=== PATIENT | female | born 1955 | race Hispanic/Latino ===

== ENCOUNTER 2016-11-09 08:42 | Outpatient (CLI) | payer MEDICARE, OTHER | END 2016-11-09 08:43 | disposition home or self-care (01) | LOC: VAS 08:42 | PROVIDERS: ATTEND Internal Medicine | DX: M79.604 Pain in right leg (principal); M79.605 Pain in left leg; M79.89 Other specified soft tissue disorders | CPT/HCPCS: 93970 ==

== ENCOUNTER 2019-07-18 08:26 | Day surgery (SDC) | payer MEDICARE, OTHER ==
[2019-07-18] MEDS ORDERED: BENZOCAINE 20% TOP SPRAY 0.5 ML UNIT DOSE MM ONE (08:38)
[2019-07-18] MEDS ORDERED: LIDOCAINE VISCOUS 2% 15 ML ORAL LIQD ONE ×2 (08:39→08:40)
[2019-07-18] MEDS ORDERED: LIDOCAINE (1%) 10 MG/1 ML VIAL 20 ML MDV ONE (08:41)
[2019-07-18] MEDS ORDERED: EPINEPHrine 1:10,000 1 MG/10 ML SYRINGE ONE (08:42)
[2019-07-18] MEDS ORDERED: EPINEPHrine/PF (1:1,000) 1 MG/1 ML INJ ONE (08:43)
[2019-07-18] MEDS ORDERED: SODIUM CHLORIDE 0.9% 1000 ML 1,000 ML ONE (08:53)
--- NOTE | 2019-07-18 08:59 | Anesthesia Consultation ---
Anesthesia Consult and Med Hx Date of service: 07/18/19 - Airway Anesthetic Teeth Evaluation: Crowns, Partials ROM Head & Neck: Adequate Mental/Hyoid Distance: Adequate Mallampati Class: Class II Intubation Access Assessment: Probably Good - Pre-Operative Health Status ASA Pre-Surgery Classification: ASA4 Proposed Anesthetic Plan: MAC - Pulmonary Hx Smoking: Yes (1-2 PPD ) Hx Asthma: Yes Hx Respiratory Symptoms: Yes (persistent cough) SOB: Yes COPD: Yes (ON 02 PRN AT BEDTIME) Home Oxygen Therapy: Yes Hx Pneumonia: No Hx Sleep Apnea: Yes - Cardiovascular System Hx Hypertension: No Hx Coronary Artery Disease: Yes (CABG 01/19/17) Hx Heart Attack/AMI: No Hx Angina: Yes Hx Percutaneous Transluminal Coronary Angioplasty (PTCA): Yes Hx Cardia Arrhythmia: No Hx Pacemaker: No Hx Internal Defibrillator: No Hx Valvular Heart Disease: No Hx Heart Murmur: No Hx Peripheral Vascular Disease: Yes (DVT 2009 takes plavix - stopped 1 week ago) - Central Nervous System Hx Neuromuscular Disorder: No Hx Seizures: No CVA: No Hx Back Pain: Yes Hx Psychiatric Problems: Yes (anexity/depression) - Gastrointestinal Hx Ulcer: No Hx Gastroesophageal Reflux Disease: Yes - Endocrine Hx Renal Disease: Yes (kidney stones) Hx End Stage Renal Disease: No Hx Cirrhosis: No Hx Liver Disease: No Hx Insulin Dependent Diabetes: No (pre-diabetes) Hx Non-Insulin Dependent Diabetes: No Hx Thyroid Disease: No Hx Hypothyroidism: No Hx Hyperthyroidism: No - Hematic Hx Anemia: No Hx Sickle Cell Disease: No - Other Systems Hx Alcohol Use: No Hx Substance Use: No Hx Cancer: Yes (SKIN CA ON BACK;) Hx Obesity: No
--- NOTE | 2019-07-18 09:02 | Anesthesia Day of Surgery ---
Anesthesia Day of Surgery - Day of Surgery Patient Examined: Yes Patient H&P Reviewed: Yes Patient is NPO: Yes Beta Blockers: Yes Cardiac Clearance: Yes
[2019-07-18] MEDS ORDERED: PROPOFOL 200 MG/20 ML VIAL IV ONE ×2 (09:50→09:51)
[2019-07-18] MEDS ORDERED: ONDANSETRON 4 MG/2 ML INJ ONE (10:30)
--- NOTE | 2019-07-18 10:32 | Procedure Note ---
Date of procedure: 07/18/19 Pre-op diagnosis: Cough Post-op diagnosis: same Procedure: Flexible Bronch with airway inspection. After obtaining informed consent in the office and here, patient taken to outpatient GIOP and prepped for procedure. Unable to anesthetize nose so used bite block and went through mouth. VC visualized with good AD and AB duction. Lido x2 used. Scope entered into trachea with lid administered to trachea and left and right mainstem. Airway inspection revealed normal airways on both sides. NO thick secretions. Nothing to remove and no areas requiring brushings or biopsies. Anesthesia: MAC Surgeon: DOTTY JAMES Estimated blood loss: none Pathology: none Condition: stable Disposition: other (Home)
[2019-07-18 11:10] VITALS: BP 109/59
== END 2019-07-18 11:23 | disposition home or self-care (01) ==
LOC: GIO 08:26
PROVIDERS: ATTEND Specialist
DX: R05 Cough (principal); I25.10 Atherosclerotic heart disease of native coronary artery without angina pectoris; I73.9 Peripheral vascular disease, unspecified; E78.00 Pure hypercholesterolemia, unspecified; J43.9 Emphysema, unspecified; G47.30 Sleep apnea, unspecified; K21.9 Gastro-esophageal reflux disease without esophagitis; M19.90 Unspecified osteoarthritis, unspecified site; F32.9 Major depressive disorder, single episode, unspecified; F17.210 Nicotine dependence, cigarettes, uncomplicated; Z85.89 Personal history of malignant neoplasm of other organs and systems; Z88.5 Allergy status to narcotic agent; Z91.013 Allergy to seafood; Z79.899 Other long term (current) drug therapy; Z79.82 Long term (current) use of aspirin; Z95.5 Presence of coronary angioplasty implant and graft; Z86.718 Personal history of other venous thrombosis and embolism; Z90.49 Acquired absence of other specified parts of digestive tract; Z90.710 Acquired absence of both cervix and uterus; Z87.442 Personal history of urinary calculi; Z98.890 Other specified postprocedural states
CPT/HCPCS: 31622; J0171; J2405; J2704; J7030